=== PATIENT | female | born 1990 | race Caucasian/White ===

== ENCOUNTER 2017-11-21 10:14 | Emergency (ER) | payer OTHER ==
[~2017-11-21] VITALS: Ht 170.2 cm; Wt 68.0 kg
[~2017-11-21 10:14] MED LIST: ADDERALL 20 MG20 M1 PO; ALDACTONE100 MG PO; DARVOCET-N 1001 EAC1 PO; LO LOESTRIN FE1 EACH; MEDROL DOSPAK21 TA1 PO; NEXIUM20 MG PO; PREDNISONE 10 M10 MG PO; SYMBICORT160 MCG/4. INH; VENTOLIN HFA 1818 GM INH; VISTARIL 25 MG25 M1 PO; ZOLOFT100 MG PO; ZPAK PO
[2017-11-21 10:38] LABS: BASOPHILS 0.6 % (0.0-2.0); EOSINOPHILS 0.1 % (0.0-3.0); HEMATOCRIT 36.5 % (37.0-47.0); HEMOGLOBIN 12.6 gm/dL (12.0-15.0); LYMPHOCYTES 2.6 % (24.0-44.0); MCH 31.1 pg (26.0-34.0); MCHC 34.4 g/dL (28.0-37.0); MCV 90.4 fL (80.0-100.0); MONOCYTES 8.7 % (1.0-8.0); PLATELET COUNT 267 thou/uL (150-400); RBC 4.04 mil/uL (4.20-5.00); RDW 13.1 % (10.5-14.5); WBC 15.9 thou/uL (4.0-11.0)
[2017-11-21 11:04] LABS: CALCIUM 8.7 mg/dL (8.5-10.1); CREATININE 0.8 mg/dL (0.6-1.0); POTASSIUM 3.4 mmol/L (3.5-5.1)
[2017-11-21 11:10] LABS: ALBUMIN 3.9 g/dL (3.4-5.0); TOTAL BILIRUBIN 0.7 mg/dL (<0.1-1.0); TOTAL PROTEIN 7.7 g/dL (6.4-8.2)
[2017-11-21 11:28] LABS: URINE BILIRUBIN NEGATIVE (Negative); URINE BLOOD 1+ (Negative); URINE CLARITY CLEAR; URINE COLOR YELLOW; URINE GLUCOSE-RANDOM* NEGATIVE (Negative); URINE KETONES 1+ (Negative); URINE LEUKOCYTES-REFLEX NEGATIVE (Negative); URINE NITRITE-REFLEX NEGATIVE (Negative); URINE PROTEIN (DIPSTICK) TRACE (Negative); URINE SPECIFIC GRAVITY 1.015 (1.005-1.035); URINE UROBILINOGEN 0.2 E.U./dl (0.2-1.0)
[2017-11-21 11:39] LABS: SQUAMOUS 0-3 Few /LPF (0-3)
[2017-11-21 11:40] LABS: BACTERIA-REFLEX None Seen /HPF (None Seen); CASTS None Seen /LPF (None Seen); CRYSTALS None Seen /LPF (None Seen); URINE RBC 0-2 Rare /HPF (0-2); URINE WBC-REFLEX 0-5 Rare /HPF (0-5)
[2017-11-21] MEDS ORDERED: AUGMENTIN 500-1 EACH PO (12:51)
[2017-11-21] MEDS ORDERED: NORCO 5-325 TA1 EACH PO (12:51)
[2017-11-21] MEDS ORDERED: ZOFRAN ODT4 MG DISSOLVE (12:51)
[2017-11-21 14:25] VITALS: BP 109/71
== END 2017-11-21 14:25 | disposition home or self-care (01) ==
LOC: ER 10:14
PROVIDERS: Emergency Medicine; Physician Assistant
DX: N12 Tubulo-interstitial nephritis, not specified as acute or chronic (principal); R11.2 Nausea with vomiting, unspecified

== ENCOUNTER 2018-09-06 16:40 | Emergency (ER) | payer OTHER ==
[~2018-09-06] VITALS: Ht 165.1 cm; Wt 54.4 kg
[~2018-09-06 16:40] MED LIST changes: +AUGMENTIN 500-1 EACH PO; +NORCO 5-325 TA1 EACH PO; +ZOFRAN ODT4 MG DISSOLVE
[2018-09-06 17:15] LABS: BASOPHILS 0.6 % (0.0-2.0); HEMATOCRIT 37.2 % (37.0-47.0); HEMOGLOBIN 12.6 gm/dL (12.0-15.0); LYMPHOCYTES 11.1 % (24.0-44.0); MCH 30.8 pg (26.0-34.0); MCHC 33.9 g/dL (28.0-37.0); MCV 90.8 fL (80.0-100.0); MONOCYTES 7.5 % (1.0-8.0); PLATELET COUNT 309 thou/uL (150-400); POLYS 80.8 % (36.0-66.0); RDW 13.6 % (10.5-14.5); WBC 11.1 thou/uL (4.0-11.0)
[2018-09-06 17:18] LABS: CALCIUM 9.4 mg/dL (8.5-10.1); CREATININE 0.7 mg/dL (0.6-1.0); POTASSIUM 3.7 mmol/L (3.5-5.1)
[2018-09-06] MEDS ORDERED: ZYRTEC10 M5 PO (18:32)
[2018-09-06] MEDS ORDERED: PERCOCET 5-3251 EACH PO (18:40)
[2018-09-06] MEDS ORDERED: MIRALAX17 GM PO (18:40)
[2018-09-06] MEDS ORDERED: COLACE100 MG PO (18:40)
[2018-09-06 20:02] VITALS: BP 132/86
[2018-09-08] MEDS ORDERED: NEXIUM40 MG PO (15:14)
[2018-09-08] MEDS ORDERED: TYLENOL325 MG PO (15:15)
[2018-09-08] MEDS ORDERED: OXYCODONE-APAP1 EAC4 PO (15:15)
== END 2018-09-06 20:02 | disposition home or self-care (01) ==
LOC: ER 16:40
PROVIDERS: Student in an Organized Health Care Education/Training Program
DX: S82.391A Other fracture of lower end of right tibia, initial encounter for closed fracture (principal); S82.451A Displaced comminuted fracture of shaft of right fibula, initial encounter for closed fracture; X50.1XXA Overexertion from prolonged static or awkward postures, initial encounter; Y93.89 Activity, other specified; Y92.89 Other specified places as the place of occurrence of the external cause; Y99.8 Other external cause status

== ENCOUNTER 2018-09-09 05:29 | Day surgery (SDC) | payer OTHER ==
[~2018-09-09] VITALS: Ht 165.1 cm; Wt 54.4 kg
[~2018-09-09 05:29] MED LIST changes: +COLACE100 MG PO; +MIRALAX17 GM PO; +NEXIUM40 MG PO; +OXYCODONE-APAP1 EAC4 PO; +PERCOCET 5-3251 EACH PO; +TYLENOL325 MG PO; +ZYRTEC10 M5 PO
[2018-09-09] MEDS ORDERED: PERCOCET 7.5-31 EACH PO (12:11)
--- NOTE | 2018-09-26 09:25 | O ---
[facility] [place] [address] OPERATIVE REPORT Name: MICHAEL WEST Room #: DEP [facility] M.R.#: [id number] Admission: 09/09/18 ������������������ Attend Phys: Philipp Sauer MD Discharge: 09/09/18 ������������������ Date of : 89 Report #: [id number] THIS REPORT FOR: //name// CC: [facility] DATE OF SERVICE: 09/09/2018 PREOPERATIVE DIAGNOSIS: Right distal tibia and fibular fracture. POSTOPERATIVE DIAGNOSIS: Right distal tibia and fibular fracture. PROCEDURE: Right tibia and fibula open reduction internal fixation. SURGEON: Philipp Sauer M.D. CLINICAL ABSTRACTOR: Karyna Aguilar. ANESTHESIA: General. ESTIMATED BLOOD LOSS: Minimal. DRAINS: None. TOURNIQUET TIME: 45 minutes. DESCRIPTION OF PROCEDURE: The patient brought to the operating room where she was placed under general anesthesia. Once under adequate general anesthesia, her right lower extremity was prepped and draped in a sterile manner. The extremity was elevated, exsanguinated, tourniquet placed 300 mmHg. A lateral incision overlying the distal fibula was then made to dissect down through soft tissue to the fibular fracture site, which was then subsequently identified. Any hematoma was removed from the fracture site and a bone reduction tenaculum was utilized to hold the fibular plate on to the bone and reduced fracture at the same time. A one-third tubular fibular plate was then placed. This was a six-hole plate with two screws distal and two screws proximal to the fracture site. Excellent fixation and alignment was achieved. A medial incision was then made at the medial malleolus approximately 3 cm in length. This was dissected down through soft tissue to the periosteum. The distal tibial plate was then slid along the distal tibia to the tip of the medial malleolus. Utilizing fluoroscopy for guidance, excellent alignment was achieved and excellent fixation was then achieved with four screws proximal and four screws distal to the fracture site. Four screws proximal were nonlocking screws and distal with one cortical and then three locking screws. Excellent fixation and alignment was achieved as verified under fluoroscopy. Once complete, the wounds were irrigated copiously and closed with 2-0 Vicryl in subcutaneous tissues and [address] [address] OPERATIVE REPORT Name: MICHAEL WEST Room #: DEP [facility]..#: [id number] Admission: 09/09/18 ������������������ Attend Phys: Philipp Sauer MD Discharge: 09/09/18 ������������������ Date of : 89 Report #: [id number] bree for the skin. The wounds were dressed with Xeroform, 4 x 4s, and a sterile soft compressive dressing was placed along with a short leg cast. Tourniquet was let down approximately 45 minutes. Toes were pink and warm with good capillary refill. There were no complications from the procedure. The patient tolerated procedure well and went to recovery room without incident. ��������������������������������������������� <ELECTRONICALLY SIGNED> ���������������������������������������� By: Philipp Sauer MD ��������������������������������������������� 09/26/18 0925 [id number] Philipp Sauer MD /nt
== END 2018-09-09 14:06 | disposition home or self-care (01) ==
LOC: TBA 05:29 → OR 05:29 → TBA 05:30 → OR 13:27
DX: S82.51XA Displaced fracture of medial malleolus of right tibia, initial encounter for closed fracture (principal); S82.831A Other fracture of upper and lower end of right fibula, initial encounter for closed fracture; K21.9 Gastro-esophageal reflux disease without esophagitis; F32.9 Major depressive disorder, single episode, unspecified; F41.9 Anxiety disorder, unspecified; Z98.890 Other specified postprocedural states; Z79.899 Other long term (current) drug therapy; X58.XXXA Exposure to other specified factors, initial encounter; Y93.89 Activity, other specified; Y92.89 Other specified places as the place of occurrence of the external cause; Y99.8 Other external cause status
CPT/HCPCS: 50010; 50101; 50341; 50343; 50386; 51131; 51412; 52120; 55430; 56524; 56525; 56667; 57091; 57179; 62110; 62900; 70005